=== PATIENT | female | born 1995 | race Caucasian/White ===

== ENCOUNTER 2019-06-17 20:39 | Emergency (ER) | payer SELFPAY ==
[~2019-06-17] VITALS: Ht 167.6 cm; Wt 45.4 kg
[2019-06-17 20:45] VITALS: BP 106/71
--- NOTE | 2019-06-17 21:05 | NUR ---
ED Nurse Note: accompanied ERMD for vaginal exam
[2019-06-17] MEDS ORDERED: LD2JL30 TOPIC (21:07)
[2019-06-17] MEDS ORDERED: DOXYCYCLINE MO100 MG ORAL (21:07)
[2019-06-17] MEDS ORDERED: ACYCLOVIR800 MG ORAL (21:07)
--- NOTE | 2019-06-17 21:12 | Emergency Room Report ---
History of Present Illness General Chief Complaint: Female Urogenital Problems Source: Patient Present Illness HPI Patient is 24-year-old female presents after increased vaginal and rectal discharge after recent unprotected intercourse. She reports having yellow- green discharge. She reports having increased pain with defecation as well as increased dysuria. She denies any vomiting. Has not been having any diarrhea. Reports having increased blistering to the vulvar area. 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 Allergies: Coded Allergies: No Known Allergies (Unverified , 06/17/19) Patient History Past Medical History: see triage record Last Menstrual Period: 05/26/19 Now: No Reviewed Nursing Documentation: PMH: Agreed; PSxH: Agreed Nursing Documentation-PMH Past Medical History: No History, Except For Review of Systems All Other Systems: negative except mentioned in HPI Physical Exam Vital Signs Date Time Temp Pulse Resp B/P (MAP) Pulse Ox O2 Delivery O2 Flow Rate FiO2 06/17/19 20:44 99.1 110 19 106/71 (83) 96 Room Air General Appearance: well appearing, no apparent distress, alert, GCS 15, non- toxic Head: normocephalic, atraumatic ENT: hearing grossly normal, normal voice Neck: full range of motion, supple Respiratory: lungs clear, no respiratory distress, speaking full sentences Cardiovascular #1: normal inspection Gastrointestinal: normal inspection, normal bowel sounds, non tender, soft Genitourinary: cervix normal - Mucopurulent cervicitis, os closed, other - Multiple left-sided vulvar ulcers less than 1 cm Musculoskeletal: normal inspection, no calf tenderness Neurologic: normal inspection, alert, oriented x3, responsive, supplier quality specialist III-XII nml as tested, normal gait Psychiatric: mood/affect normal Skin: no rash Medical Decision Making Diagnostic Impression: Primary Impression: Sexually transmitted disease ER Course Patient presented for increased vaginal pain and discharge. Differential diagnosis include was not limited to sexually transmitted infection, yeast infection, bacterial vaginosis among others. Patient has a benign exam and does not appear to require any imaging or laboratory testing at this time. Patient appears to have multiple ulcers consistent with recent sexual transmitted disease and appears to have multiple different types of infection. Patient will be empirically treated with Rocephin and doxycycline. She was given prescription for acyclovir as well. She was advised to follow-up with health clinic for further evaluation and treatment. She is advised to return if worse. The patient is advised to follow up with primary care doctor in 1-2 days. Patient is advised to return if any worsening condition or if any changes in status that are concerning. This report is dictated with [employer] front end loader operator software which may occasionally lead to discrepancies related to use of this software. Last Vital Signs Date Time Temp Pulse Resp B/P (MAP) Pulse Ox O2 Delivery O2 Flow Rate FiO2 06/17/19 20:44 99.1 110 19 106/71 (83) 96 Room Air Status: improved Disposition: HOME, SELF-CARE Condition: Stable Scripts Lidocaine HCL 2% Jelly* (Lidocaine Jelly 2%*) 5 Ml Jel.pf.shirley 5 ML TOPIC DAILY for pain, #30 ML Prov: Christopher Cole MD 06/17/19 Acyclovir* (ZOVIRAX*) 800 Mg Tablet 800 MG ORAL FIVE TIMES A DAY, #35 TAB Prov: Christopher Cole MD 06/17/19 Doxycycline Monohydrate* (DOXYCYCLINE MONOHYDRATE*) 100 Mg Capsule 100 MG ORAL Q12H, #14 CAP 0 Refills Prov: Christopher oCle MD 06/17/19 Patient Instructions: Sexually Transmitted Disease, [id number] Additional Instructions: Follow up with clinic for full sexual transmitted infection testing. Return if worse. Christopher Cole MD Jun 17, 2019 21:12
[2019-06-17] MEDS ORDERED: Lidocaine 1% MPF 10mg/ml 5ml INJ ONE (21:15)
--- NOTE | 2019-06-17 21:42 | NUR ---
ER DISCHARGE NOTE: Patient is cleared to be discharged per ERMD, pt is aox4, on room air, with stable vital signs. pt was given dc and prescription instructions, pt was able to verbalize understanding, pt id band and iv site removed without complications. pt is able to ambulate with steady gait. pt took all belongings.
== END 2019-06-17 21:42 | disposition home or self-care (01) ==
LOC: EMR 21:26
DX: A64 Unspecified sexually transmitted disease (principal)
CPT/HCPCS: 96372; 96374; 99284; J0696